=== PATIENT | female | born 1995 | race Two or more races ===

== ENCOUNTER 2024-04-05 20:07 | Observation (INO) | payer MEDICAID, OTHER ==
[~2024-04-05] VITALS: Ht 165.1 cm; Wt 95.3 kg
[2024-04-05] MEDS ORDERED: TERBUTALINE SULFATE 1 MG/ML 1ML VIAL SC SCH (20:30)
[2024-04-05] MEDS: LACTATED RINGER'S 1,000 ML IV ONE (20:50)
[2024-04-05] MEDS: ONDANSETRON HCL 4 MG/2 ML VIAL IV PRN (20:55)
[2024-04-05 21:09] LABS: Basophils # (auto) 0 10 ^3/uL (0-0.2); Basophils % (auto) 0.2 % (0.0-2.0); Eosinophils # (auto) 0 10 ^3/uL (0-0.8); Eosinophils % (auto) 0.3 % (0.0-7.0); Hematocrit 38.3 % (36.0-46.0); Hemoglobin 13.4 g/dL (12.2-16.2); Lymphocytes % (auto) 7.9 % (10.0-50.0); Mean Corpuscular Hemoglobin 29.9 pg (28.0-32.0); Mean Corpuscular Hgb Conc. 34.9 g/dL (32.0-36.0); Mean Corpuscular Volume 85.8 fL (80.0-100.0); Monocytes # (auto) 0.6 10 ^3/uL (0-1.3); Monocytes % (auto) 4.5 % (0.0-12.0); Neutrophils # (auto) 11.2 10 ^3/uL (1.6-8.6); Neutrophils % (auto) 87.1 % (37.0-80.0); Nucleated Red Blood Cells % 0.1 %; Platelet Count (auto) 229 10^3/uL (140-450); Red Blood Cells 4.46 10^6/uL (4.0-5.20); Red Cell Distribution Width 13.6 % (11.8-14.3); White Blood Cell 12.9 10^3/uL (4.4-10.8)
[2024-04-05 21:25] LABS: Alanine Aminotransferase 41 U/L (7-40); Albumin 4.2 g/dL (3.2-4.8); Alkaline Phosphatase 168 U/L (46-116); Anion Gap 9 (5-15); Aspartate Aminotransferase 22 U/L (13-40); Bilirubin, Total 0.6 mg/dL (0.2-1.0); Calcium 9.4 mg/dL (8.7-10.4); Carbon Dioxide 21 mmol/L (20-30); Chloride 105 mmol/L (98-107); Glucose 85 mg/dL (74-106); INR 0.95 (0.9-1.15); Partial Thromboplastin Time 26.5 SEC (24.5-34.5); Potassium 3.4 mmol/L (3.5-5.1); Prothrombin Time 10.1 sec (9.3-11.8); Sodium 135 mmol/L (136-145); Total Protein 7.1 g/dL (5.7-8.2)
[2024-04-05 21:26] LABS: BUN/Creatinine Ratio 8.9 (10.0-20.0); Blood Urea Nitrogen < 5 mg/dL (9-23)
[2024-04-05 21:29] LABS: COVID19 ANTIGEN SOFIA FIA NEGATIVE (NEGATIVE); Rapid Influenza A Negative (Negative); Rapid Influenza B Negative (Negative)
[2024-04-05 21:37] LABS: Uric Acid 5.2 mg/dL (3.1-7.8)
[2024-04-05] MEDS: LACTATED RINGER'S 1,000 ML IV SCH (22:00)
[2024-04-05] MEDS ORDERED: CEPH250C PO (22:41)
[2024-04-05 23:20] LABS: Urine Bacteria None Seen /hpf (None Seen)
[2024-04-05 23:27] LABS: Urine Blood Negative /uL (Negative); Urine Clarity Clear (Clear); Urine Color Yellow (Yellow); Urine Mucus FEW (None Seen); Urine Protein, UAD TRACE (Negative); Urine Specific Gravity 1.018 (1.001-1.035); Urine Urobilinogen 2 mg/dL (Negative); Urine WBC 2 /hpf (0 - 5); Urine pH 6.5 (5.0-9.0)
[2024-04-05 23:54] LABS: Protein, Urine 32.5 mg/dL (0.0-11.9)
[2024-04-05 23:57] LABS: Creatinine, Urine 90.55 mg/dL (30.0-125.0); Urine Protein/Creatinine Ratio 0.36
== END 2024-04-05 23:40 | disposition home or self-care (01) ==
LOC: LDRP 20:07
PROVIDERS: ADMIT Obstetrics & Gynecology; ATTEND Obstetrics & Gynecology
DX: O21.2 Late vomiting of pregnancy (principal); Z20.822 Contact with and (suspected) exposure to COVID-19; O26.893 Other specified pregnancy related conditions, third trimester; R10.9 Unspecified abdominal pain; R51.9 Headache, unspecified; Z3A.32 32 weeks gestation of pregnancy
CPT/HCPCS: 36415; 59025; 76805; 80053; 81001; 82570; 84156; 84550; 85025; 85379; 85610; 85730; 87426; 87804; 94760; 96361; 96374; G0378; J2405; 96360